=== PATIENT | female | born 1965 | race Caucasian/White ===

== ENCOUNTER 2019-04-23 17:56 | Emergency (ER) | payer BC ==
[~2019-04-23] VITALS: Ht 167.6 cm; Wt 72.6 kg
[2019-04-23 18:00] VITALS: BP 137/88
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
[2019-04-23 19:23] LABS: BASOPHILS % (AUTO) 0.7 % (0.0-2.0); EOSINOPHILS # (AUTO) 0.1 K/uL (0-0.4); EOSINOPHILS % (AUTO) 2.2 % (0.0-4.0); HEMATOCRIT 43.9 % (36-48); HEMOGLOBIN 14.9 g/dL (12.0-16.0); LYMPHOCYTES # (AUTO) 2.5 K/uL (2.5-16.5); LYMPHOCYTES % (AUTO) 38.4 % (20.5-51.1); MEAN CORPUSCULAR HEMOGLOBIN 31 pg (27-31); MEAN CORPUSCULAR HGB CONC 34 g/dL (33-37); MEAN CORPUSCULAR VOLUME 91.7 fL (80-94); MONOCYTES # (AUTO) 0.7 K/uL (0.8-1.0); MONOCYTES % (AUTO) 10.7 % (1.7-9.3); NEUTROPHILS # (AUTO) 3.1 K/uL (1.8-7.7); PLATELET COUNT (AUTO) 270 K/uL (140-450); RED BLOOD CELL COUNT(AUTO) 4.78 MIL/uL (4.20-5.40); RED CELL DISTRIBUTION WIDTH 13.9 % (11.6-13.7); WHITE BLOOD COUNT (AUTO) 6.5 K/uL (4.8-10.8)
[2019-04-23 19:30] LABS: APPEARANCE,URINE CLEAR (CLEAR); BILIRUBIN,URINE NEGATIVE (NEGATIVE); BLOOD, URINE NEGATIVE (NEGATIVE); COLOR,URINE YELLOW (YELLOW); LEUKOCYTE ESTERASE ,URINE NEGATIVE (NEGATIVE); NITRITE, URINE NEGATIVE (NEGATIVE); UGLUCOSE NEGATIVE (NEGATIVE)
[2019-04-23 19:43] LABS: ALBUMIN 3.7 g/dL (3.4-5.0); CARBON DIOXIDE 28.8 mmol/L (21-32); CREATININE 0.8 mg/dL (0.6-1.3); POTASSIUM 3.8 mmol/L (3.5-5.1); TOTAL BILIRUBIN 0.4 mg/dL (0.0-1.0)
--- NOTE | 2019-04-23 19:45 | NUR ---
CHECKED ON PT. LYING COMFORTABLY IN HER BED. WIATING FOR THE LAB RESULT.
[2019-04-23 20:15] VITALS: BP 137/88
--- NOTE | 2019-04-23 20:15 | NUR ---
Patient discharged with v/s stable. Written and verbal after care instructions given and explained. Patient alert, oriented and verbalized understanding of instructions. Ambulatory with steady gait. All questions addressed prior to discharge. ID band removed. Patient advised to follow up with PMD. Opportunity to ask questions provided and answered.
== END 2019-04-23 20:18 | disposition home or self-care (01) ==
LOC: MED 17:56
DX: K74.60 Unspecified cirrhosis of liver (principal)
CPT/HCPCS: 36415; 80053; 81003; 85025; 99284

== ENCOUNTER 2021-05-04 17:53 | Emergency (ER) | payer BC ==
[~2021-05-04] VITALS: Ht 167.6 cm; Wt 67.1 kg
[2021-05-04 18:29] VITALS: BP 150/100
--- NOTE | 2021-05-04 18:32 | NUR ---
PT TO LOBBY.
--- NOTE | 2021-05-04 19:48 | NUR ---
PTS LABS BEING DRAWN IN CHAIR A.
--- NOTE | 2021-05-04 19:50 | NUR ---
PT TAKEN TO BED 09.
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
[2021-05-04 19:58] LABS: BASOPHILS # (AUTO) 0.1 K/uL (0.00-0.22); BASOPHILS % (AUTO) 0.9 % (0.0-2.0); EOSINOPHILS # (AUTO) 0.1 K/uL (0-0.4); EOSINOPHILS % (AUTO) 1.3 % (0.0-4.0); HEMATOCRIT 43.9 % (36-48); LYMPHOCYTES # (AUTO) 3.3 K/uL (2.5-16.5); LYMPHOCYTES % (AUTO) 33.8 % (20.5-51.1); MEAN CORPUSCULAR HEMOGLOBIN 31 pg (27-31); MEAN CORPUSCULAR HGB CONC 34 g/dL (33-37); MEAN CORPUSCULAR VOLUME 90.2 fL (80-94); MONOCYTES # (AUTO) 0.8 K/uL (0.8-1.0); MONOCYTES % (AUTO) 8.4 % (1.7-9.3); NEUTROPHILS # (AUTO) 5.4 K/uL (1.8-7.7); NEUTROPHILS % (AUTO) 55.6 % (42.2-75.2); PLATELET COUNT (AUTO) 267 K/uL (140-450); RED BLOOD CELL COUNT(AUTO) 4.87 MIL/uL (4.20-5.40); RED CELL DISTRIBUTION WIDTH 12.8 % (11.6-13.7); WHITE BLOOD COUNT (AUTO) 9.7 K/uL (4.8-10.8)
--- NOTE | 2021-05-04 20:00 | NUR ---
Patient ambulated to the bathroom for urine collection.
[2021-05-04] MEDS ORDERED: KETOROLAC 60 MG/2 ML VIAL IM ONE (20:05)
--- NOTE | 2021-05-04 20:07 | NUR ---
Placed patient in a gown for ultrasound
[2021-05-04 20:09] LABS: ALBUMIN 4.1 g/dL (3.4-5.0); ANION GAP 11.5 (8-16); CARBON DIOXIDE 27.5 mmol/L (21-32); CREATININE 0.8 mg/dL (0.6-1.3); TOTAL BILIRUBIN 0.6 mg/dL (0.0-1.0)
--- NOTE | 2021-05-04 20:19 | NUR ---
ERMD at bedside for examination.
--- NOTE | 2021-05-04 20:20 | NUR ---
Female Career Professional accompanied female patient for Pelvic Exam.
--- NOTE | 2021-05-04 20:26 | NUR ---
ultrasound at bedside
--- NOTE | 2021-05-04 21:51 | NUR ---
called ultrasound for updates on results
[2021-05-04] MEDS ORDERED: CEPH-588 PO (22:16)
[2021-05-04] MEDS ORDERED: SULF-59 PO (22:16)
[2021-05-04] MEDS ORDERED: NAPR-54 PO (22:16)
--- NOTE | 2021-05-04 22:17 | NUR ---
ERMD AT BEDSIDE SPEAKING ABOUT RESULTS AND FURTHER CARE
[2021-05-04 22:35] VITALS: BP 146/97
--- NOTE | 2021-05-04 22:35 | NUR ---
Patient discharged with v/s stable. Written and verbal after care instructions given and explained. Patient alert, oriented and verbalized understanding of instructions. Ambulatory with steady gait. All questions addressed prior to discharge. ID band removed. Patient advised to follow up with PMD. Rx of KEFLEX, NAPROSYN, BACTRIM DS TAB given. Patient educated on indication of medication including possible reaction and side effects. Opportunity to ask questions provided and answered.
== END 2021-05-04 22:35 | disposition home or self-care (01) ==
LOC: MED 17:53
DX: N90.7 Vulvar cyst (principal)
CPT/HCPCS: 36415; 76830; 80053; 81002; 81025; 85025; 96372; 99284; J1885

== ENCOUNTER 2021-07-04 18:18 | Emergency (ER) | payer BC ==
[~2021-07-04] VITALS: Ht 167.6 cm; Wt 72.6 kg
[~2021-07-04 18:18] MED LIST: CEPH-588 PO; NAPR-54 PO; SULF-59 PO
[2021-07-04 18:29] VITALS: BP 181/93
[2021-07-04] MEDS ORDERED: KETOROLAC 30 MG/ML VIAL IM ONE (19:30)
[2021-07-04] MEDS ORDERED: NAPR-54 PO (19:31)
[2021-07-04] MEDS ORDERED: HYDROcodone/APAP 5/325 MG 1 TAB TAB PO ONE (20:35)
[2021-07-04 20:43] VITALS: BP 181/93
== END 2021-07-04 20:43 | disposition home or self-care (01) ==
LOC: MED 18:18
DX: M25.571 Pain in right ankle and joints of right foot (principal); Z79.1 Long term (current) use of non-steroidal anti-inflammatories (NSAID); Z79.2 Long term (current) use of antibiotics
CPT/HCPCS: 73610; 73630; 99284; J1885